=== PATIENT | female | born 1990 | race Caucasian/White ===

== ENCOUNTER 2019-02-25 11:08 | Inpatient (IN) | payer BC ==
[2019-02-25] MEDS ORDERED: Ibuprofen 800 MG TAB PO PRN (11:43)
[2019-02-25] MEDS ORDERED: Lidocaine 1% (PF) 30 ML VIAL SC PRN (11:43)
[2019-02-25] MEDS ORDERED: Misoprostol 200 MCG TAB PR PRN (11:43)
[2019-02-25] MEDS ORDERED: Carboprost 250 MCG/ML AMP IM PRN (11:43)
[2019-02-25] MEDS ORDERED: Promethazine HCl 25 MG/ML VIAL IM PRN (11:43)
[2019-02-25] MEDS ORDERED: HYDROcodone/Acetaminophen 5/325 mg Tablet PO PRN ×3 (11:43→15:05)
[2019-02-25] MEDS ORDERED: Ondansetron PF 4 MG/2 ML Vial IVP PRN (11:43)
[2019-02-25] MEDS ORDERED: Methylergonovine 0.2 MG/ML VIAL IM PRN (11:43)
[2019-02-25] MEDS ORDERED: Diphenoxylate HCl/Atropine Tablet PO PRN ×2 (11:43)
[2019-02-25] MEDS ORDERED: NS / Oxytocin 40 units/1000ml 1,000 ML IV PRN (11:43)
[2019-02-25] MEDS ORDERED: Acetaminophen 500 MG TAB PO PRN (11:43)
[2019-02-25] MEDS ORDERED: NS w/ Oxytocin 10 units 500 ML IV SCH (11:45)
[2019-02-25] MEDS ORDERED: Lactated Ringer's 1,000 ML IV SCH (11:45)
[2019-02-25] MEDS ORDERED: NS / Oxytocin 40 units/1000ml 0 ML ONE (11:50)
[2019-02-25] MEDS ORDERED: Lidocaine 1% (PF) 30 ML VIAL ONE ×2 (11:50→12:16)
[2019-02-25] MEDS ORDERED: Oxytocin 10 UNITS/ML VIAL ONE ×2 (11:54→11:55)
--- NOTE | 2019-02-25 12:36 | PDOC.OPDEL ---
OB Operative/Delivery Note Delivery Dr/Surgeon: Armando Pre-Delivery Diagnosis: active labor, non-reassuring tracing, ruptured membrane Procedure/Post Delivery Dx: operative vaginal delivery (Vacuum assisted vaginal delivery, indication was bradycardia, see dictated note for full details of delivery. Successful.) Weeks gestation: 38 Anesthesia: local - Findings A Sex: male - 1 min: 8 - 5 min: 9 - Additional Findings/Plan Placenta delivered: spontaneous Repaired Obstetrical Laceration: 2nd degree Estimated blood loss: 300 Compilations/Other Findings: Nuchal cord x1, delivered through. Post delivery plan: routine recovery
[2019-02-25 12:52] LABS: Actual Bicarbonate (HCO3a) 22.1 mEq/L (22-28); Analyzer IN Cardio OR; Base Excess (BEa) -2.1 mEq/L (-2.0 to +3.0)
[2019-02-25 12:58] LABS: Hemoglobin 12.1 g/dL (12.0-16.0); Mean Corpuscular Hemoglobin 33.6 pg (27.0-31.0); Mean Corpuscular Volume 96.1 fL (78.0-98.0); Mean Platelet Volume 8.5 fL (7.4-10.4); Platelet Count 226 thou/uL (130-400); RBC Distribution Width 11.3 % (11.5-14.5); White Blood Cell (WBC) Count 16.9 thou/uL (4.8-10.8)
[2019-02-25 13:10] VITALS: BMI 25.0
[2019-02-25 13:38] LABS: Syphilis Antibody Nonreactive (Nonreactive); Syphilis Antibody Index 0.02 S/CO (<1.00 Non-Reactive)
[2019-02-25 13:40] LABS: HBSAg Index 0.38 S/CO (0-0.99); Hep B Surf Ag Non-Reactive S/CO (NonReactive)
[2019-02-25] MEDS ORDERED: Bisacodyl 10 MG SUPP PR PRN (15:05)
[2019-02-25] MEDS ORDERED: NS / Oxytocin 40 units/1000ml 1,000 ML IV SCH (15:05)
[2019-02-25] MEDS ORDERED: Benzocaine-Menthol 82.5 ML CAN TOP PRN (15:05)
[2019-02-25] MEDS: Ferrous Sulfate 325 MG TAB PO SCH (18:52)
[2019-02-25] MEDS: Ibuprofen 800 MG TAB PO SCH (21:06)
[2019-02-25] MEDS: Docusate Calcium (SURFAK) 240 MG CAP PO SCH (21:06)
[2019-02-26] MEDS: Ibuprofen 800 MG TAB PO SCH (05:30)
[2019-02-26] MEDS ORDERED: Milk Of Magnesia 30 ML UDCUP PO PRN (09:00)
[2019-02-26] MEDS: Ferrous Sulfate 325 MG TAB PO SCH (09:04)
[2019-02-26] MEDS: Docusate Calcium (SURFAK) 240 MG CAP PO SCH (09:05)
[2019-02-26 11:11] VITALS: BP 111/63; TEMP 98.1
--- NOTE | 2019-02-26 12:16 | PDOC.PP ---
Post Progress Note Post Day #: 1 Subjective: No complaints. Feeling well. without issues. PO intake tolerated: yes Flatus: yes Ambulation: yes Vital Signs (12 hours) Temp Pulse Resp BP Pulse Ox 02/26/19 11:10 98.1 F 66 20 111/63 02/26/19 08:00 97.8 F 74 20 128/79 97 02/26/19 05:00 97.9 F 72 18 131/86 Weight Weight 155 lb - Physical Examination General: NAD Cardiovascular: no m/r/g, RRR Respiratory: clear to auscultation bilaterally, non-labored breathing Abdominal: + bowel sounds, lochia, no distention, appropriately TTP Result Diagrams: 02/25/19 12:50 Additional Labs: Post Labs Blood Type O POSITIVE 02/25/19 12:49 Hep Bs Antigen Non-Reactive S/CO (NonReactive) 02/25/19 12:49 (1) Vaginal delivery Code(s): O80 - ENCOUNTER FOR FULL-TERM UNCOMPLICATED DELIVERY Status: Acute - Assessment/Plan Routine PP care D/C home F/U 6 weeks
--- NOTE | 2019-02-26 12:18 | PDOC.LDHP ---
Labor and Delivery H&P Chief complaint: contractions, loss of fluid HPI: SROM at 0630, CTX started about 10am. Rapidly stronger. Complete at admission. Current gestational age (weeks): 38 Dating criteria: last menstrual period, first trimester ultrasound Grav: 1 Para: 0 Current complications: none Abnormal US findings: No Current medications: pre- vitamins Previous surgical history: none Allergies/Adverse Reactions: Allergies Allergy/AdvReac Type Severity Reaction Status Date / Time No Known Allergies Allergy Unverified 02/25/19 13:02 Social history: none - Physical Exam Vital signs reviewed and normal: yes General: NAD, breathing through contractions Heart: RRR Lungs: CTAB Abdomen: gravid Extremeties: no edema FHT: category 1 - Vaginal Exam cm dilated: 10 Effacement: 100% Station: 2+ - OB Labs Blood type: O RH: positive Antibody Screen: negative HIV: negative RPR: negative HEPSAg: negative 1 hour GCT: negative GBS: negative Urine drug screen: not done Rubella: immune - Assessment L&D Assessment: term rupture in membranes - Plan Plan: admit to L&D (Complete on admission- delivered quickly - see that note for details)
== END 2019-02-26 18:35 | disposition home or self-care (01) | DRG 807 ==
LOC: L&D/OP 11:08 → L&D-LIB 12:01 → 3SW 15:59 → UNDODISIN 02-26 15:15
PROVIDERS: ADMIT Family Medicine; ATTEND Family Medicine
PROC: 10D07Z6 Extraction of Products of Conception, Vacuum, Via Natural or Artificial Opening (ICD-10-PCS; principal; 2019-02-25)
PROC: 0KQM0ZZ Repair Perineum Muscle, Open Approach (ICD-10-PCS; 2019-02-25)
DX: O76 Abnormality in fetal heart rate and rhythm complicating labor and delivery (principal); Z37.0 Single live birth; O70.1 Second degree perineal laceration during delivery; Z3A.38 38 weeks gestation of pregnancy
CPT/HCPCS: 36415; 82805; 85027; 86780; 86850; 86900; 86901; 87340; 99285; J2001; J2590